=== PATIENT | male | born 1950 | race Caucasian/White ===

== ENCOUNTER 2017-06-21 07:36 | Emergency (ER) | payer MEDICARE, BC ==
[~2017-06-21] VITALS: Ht 177.8 cm; Wt 81.0 kg
[2017-06-21 07:37] VITALS: BP 139/79; PULSE 82; RESP 13; TEMP 98; O2SAT 99
[2017-06-21] MEDS ORDERED: ATOV750UDC PO (07:52)
[2017-06-21] MEDS ORDERED: MULT-65 PO (07:52)
[2017-06-21] MEDS ORDERED: ATOR10TA15 PO (07:52)
[2017-06-21] MEDS ORDERED: TIMO0.5S30 EACH EYE (07:52)
[2017-06-21] MEDS ORDERED: ACYC800T PO (07:52)
[2017-06-21 07:55] VITALS: BP 134/86; PULSE 83; RESP 17; O2SAT 99
--- NOTE | 2017-06-21 08:22 | PD ---
HPI Chief Complaint: Medical Clearance Time Seen by Provider: 07:48 Travel History International Travel<30 days: No Contact w/Intl Traveler<30days: No Traveled to known affect area: No History of Present Illness HPI This is a 66-year-old male who has a history of large B-cell lymphoma who is currently in remission but is immune compromised and on IVIG periodically who presents to the emergency department with 2 months of cough. He says his cough is productive with clear sputum, intermittent, worse in the evenings, improved during the day associated with some nasal congestion and sore throat. The patient saw his primary care doctor prior to coming down to [place] for the winter and he prescribed him a 10 day course of Ceftin which he completed an early May. He says multiple people in his house have been sick with viral illnesses. He denies any fevers or chills. He is just frustrated the cough isn 't going away and he was concerned because of his immune status. PFSH Past Medical History Cancer: Yes (NON HODGKINS LYMPHOMA) High Cholesterol: Yes Hypertension: Yes Implanted Vascular Access Dvce: Yes Tetanus Vaccination: Unknown Influenza Vaccination: Yes Social History Alcohol Use: Yes (RARELY) Tobacco Use: No Substance Use: No Allergies-Medications (Allergen,Severity, Reaction): Uncoded Allergies: chloraprep (Adverse Reaction, Intermediate, itching, 06/21/17) Reported Meds & Prescriptions Reported Meds & Active Scripts Active Claritin-D 12 HR (Loratadine-Pseudoephedrine 12 HR) 5-120 Mg Tab 1 Tab PO BID Promethazine-Codeine Liq 6.25-10 Mg/5 Ml Syrp 5-10 Ml PO Q6H PRN Reported Timolol Opth Drops 0.5 % Soln 1 Drop EACH EYE BID Mepron Liq (Atovaquone) 750 Mg/5 Ml Susp 1,500 Mg PO DAILY Take with food. Acyclovir 800 Mg Tab 800 Mg PO BID Multi-Vitamin Daily (Multiple Vitamin) 1 Tab Tab 1 Tab PO DAILY Atorvastatin (Atorvastatin Calcium) 10 Mg Tab 10 Mg PO HS Review of Systems Except as stated in HPI: all other systems reviewed are Neg Physical Exam Narrative GENERAL:Well appearing, no acute distress SKIN: Focused skin assessment warm and dry. HEAD: Atraumatic. Normocephalic. EYES: Pupils equal and round. No injection or drainage. ENT: Moist mucous membranes NECK: Trachea midline. CARDIOVASCULAR: Regular rate and rhythm. No murmur appreciated. RESPIRATORY: Clear to auscultation. Breath sounds equal bilaterally. GASTROINTESTINAL: Abdomen soft, non-tender, nondistended. MUSCULOSKELETAL: No obvious deformities. NEUROLOGICAL: Awake and alert. No obvious cranial nerve deficits. Moving all extremities. PSYCHIATRIC: Appropriate mood and affect; insight and judgment normal. Data Data Last Documented VS Vital Signs Date Time Temp Pulse Resp B/P (MAP) Pulse Ox O2 Delivery O2 Flow Rate FiO2 06/21/17 09:51 06/21/17 07:55 83 17 99 Room Air 06/21/17 07:37 98.0 Orders Orders Influenzae A/B Antigen (06/21/17 08:10) Chest, Pa & Lat (06/21/17 ) Group A Rapid Strep Screen (06/21/17 08:10) Strep Culture (Group A) (06/21/17 08:15) Ed Discharge Order (06/21/17 09:38) MDM Medical Decision Making Medical Screen Exam Complete: Yes Emergency Medical Condition: Yes Interpretation(s) Afebrile, no tachycardia, normotensive Chest x-ray: No acute process Influenza negative Strep negative Differential Diagnosis Strep pharyngitis, viral pharyngitis, sinusitis, bronchitis, pneumonia Narrative Course This is a 66-year-old male who presents to the emergency department with a cough productive of clear sputum that's been present for over a month. He has a history of immunosuppression. He is very well-appearing and is afebrile. He is not hypoxic. Influenza, strep and chest x-ray were obtained all of which were reassuring. Patient will be treated symptomatically with Claritin and Phenergan with codeine. He will follow up outpatient with his primary care physician. Diagnosis Primary Impression: Cough Patient Instructions: General Instructions Additional Instructions: If you develop severe chest pain, shortness of breath, sweating, lightheadedness , dizziness or difficulty breathing return to the emergency department immediately. Followup with your primary care physician in 2-3 days if your symptoms are not resolved. Med/Other Pt SpecificInfo: Prescription(s) given Scripts Loratadine-Pseudoephedrine 12 HR (Claritin-D 12 HR) 5-120 Mg Tab 1 TAB PO BID for Allergy Management, #20 TAB 0 Refills Prov: Yane Oconnor MD 06/21/17 Promethazine-Codeine Liq (Promethazine-Codeine Liq) 6.25-10 Mg/5 Ml Syrp 5-10 ML PO Q6H Y for COUGH AND/OR COLD SYMPTOMS, #100 ML 0 Refills Prov: Yane Oconnor MD 06/21/17 Disposition: 01 DISCHARGE HOME Condition: Stable Yane Oconnor MD Jun 21, 2017 08:22
[2017-06-21] MEDS ORDERED: PROM6.256 PO (09:38)
[2017-06-21] MEDS ORDERED: CLAR5TAB9 PO (09:38)
--- NOTE | 2017-06-21 10:18 | RADRPT ---
EXAM DATE/TIME: 06/21/2017 08:46 [facility] COMPARISON: No previous studies available for comparison. INDICATIONS : Cough. MEDICAL HISTORY : Hx of Non Hodgkin's lymphoma, allergies SURGICAL HISTORY : port from treatment ENCOUNTER: Initial ACUITY: 1 day PAIN SCORE: 0/10 LOCATION: Bilateral chest FINDINGS: Left internal jugular [id number] has its tip at the junction of superior vena cava and right atriu m. No pneumothorax is noted. The heart is normal. The pulmonary vascular pattern is normal. The lungs are clear. CONCLUSION: No acute cardiopulmonary disease. Arnaldo Khan MD on June 21, 2017 at 10:14 Board Certified Radiologist. This report was verified electronically.
== END 2017-06-21 09:51 | disposition home or self-care (01) ==
LOC: NEPE 07:36
DX: R05 Cough (principal); E78.00 Pure hypercholesterolemia, unspecified; I10 Essential (primary) hypertension; Z85.72 Personal history of non-Hodgkin lymphomas
CPT/HCPCS: 71046; 87081; 87804; 87880; 99284